=== PATIENT | female | born 1980 | race Caucasian/White ===

== ENCOUNTER → 2016-03-18 | Outpatient (CLI) | payer OTHER ==
--- NOTE | 2016-03-18 11:48 | KCIC ---
PROCEDURE Abdomen ultrasound HISTORY Diarrhea, abdominal pain COMPARISON None FINDINGS Multiple sonographic images of the abdomen are submitted. There is no abnormality of the visualized pancreas. Abdominal aorta is mostly obscured, visualized proximal segment within normal limits at 1.9 centimeters in caliber. There is diffuse coarsening of the echotexture of the liver, no obvious focal hepatic mass demonstrated on this exam. Right lobe of the liver measured 17 centimeters longitudinal. Common bile duct measured 0.3 centimeters. Gallbladder is present, internal echogenicity compatible with cholelithiasis. Gallbladder wall thickness is within normal limits. There is no pericholecystic fluid. Right kidney measured 10.5 x 5.5 x 5.9 centimeters, no hydronephrosis. Left kidney measured 11.3 x 4.8 x 6 x 5.3 centimeters, no hydronephrosis. Spleen measured 9.2 centimeters. No free fluid is demonstrated. IMPRESSION 1. There is cholelithiasis. 2. There is hepatic steatosis. Electronically signed by: Harish Hernández MD (Mar 18, 2016 11:47:07)
== END | disposition home or self-care (01) ==
LOC: KCIC US 08:42
PROVIDERS: ATTEND Physician Assistant Medical
DX: R10.9 Unspecified abdominal pain (principal); R19.7 Diarrhea, unspecified; K80.20 Calculus of gallbladder without cholecystitis without obstruction; K76.0 Fatty (change of) liver, not elsewhere classified
CPT/HCPCS: 76700

== ENCOUNTER → 2016-04-18 | Outpatient (CLI) | payer OTHER ==
--- NOTE | 2016-04-18 10:46 | KCIC ---
PROCEDURE PA and lateral chest radiographs 04/18/2016 HISTORY Productive cough for 5 days. FINDINGS PA and lateral digital radiographs of the chest were obtained. No previous studies are available for comparison. The cardiac and mediastinal silhouettes are within normal limits in size and configuration. No acute pulmonary infiltrate is seen. No pleural effusion or pneumothorax is noted. Very mild degenerative changes are seen involving the thoracic spine. Minimal S-shaped curvature of the thoracolumbar spine is noted. IMPRESSION No acute abnormality is seen. Electronically signed by: Reza Mccoy MD (Apr 18, 2016 10:45:36)
== END | disposition home or self-care (01) ==
LOC: KCIC 09:18
PROVIDERS: ATTEND Preventive Medicine Public Health & General Preventive Medicine
DX: R05 Cough (principal)
CPT/HCPCS: 71020

== ENCOUNTER → 2019-09-30 | Outpatient (CLI) | payer OTHER, BC ==
--- NOTE | 2019-09-30 15:39 | KCIC ---
AP Internal and external rotation views with Y-View of the left shoulder were performed. Indication: Shoulder pain after hearing a pop while lifting overhead Comparison: None. No fracture, glenohumeral or AC joint subluxation, or significant degenerative changes are seen. The subacromial space is maintained. Impression: 1. Unremarkable exam of the left shoulder. Electronically signed by: David العلي MD (09/30/2019 3:36 PM) [id number]
== END | disposition home or self-care (01) ==
LOC: KCIC 13:17
PROVIDERS: ATTEND Internal Medicine
DX: M19.012 Primary osteoarthritis, left shoulder (principal)
CPT/HCPCS: 73030

== ENCOUNTER → 2019-10-08 | Outpatient (CLI) | payer OTHER, BC ==
--- NOTE | 2019-10-08 13:11 | KCIC ---
EXAM: MRI left shoulder DATE: 10/08/2019 9:32 AM COMPARISON: None INDICATION: INJURY AND ACUTE PAIN OF LEFT SHOULDER TECHNIQUE: Multiplanar, multisequence MRI of the left shoulder was performed without contrast. FINDINGS: Examination is limited by motion artifact. Mild edema centered at the AC joint may correspond to low-grade AC sprain. Subacromial-subdeltoid bursal fluid likely bursitis. There is a high-grade partial-thickness bursal sided tear of the anteriormost fibers of the supraspinatus tendon involving about 75 percent tendon thickness, measuring approximately 1 cm in AP dimension. At the midcuff, there is a partial-thickness articular sided tear of the supraspinatus measuring approximately 5-6 mm in AP dimension. There is a background of moderate supraspinatus and infraspinatus tendinosis. Rotator cuff muscle signal and bulk is normal without fatty atrophy. Articular cartilage is grossly preserved. Mild deformity of the anterior-inferior labrum suspicious for tear. Extra articular long head biceps tendon is seen within the bicipital groove. Intra-articular long head biceps tendon is intact, normal in signal and morphology. IMPRESSION: 1. Mild edema centered at the AC joint may correspond to low-grade AC sprain. 2. High-grade partial-thickness bursal sided tear of the anteriormost fibers of the supraspinatus. At the level of the midcuff, there is likely a bursal sided tear. Background of supraspinatus and infraspinatus tendinosis. 3. Mild deformity of the anterior-inferior labrum is suspicious for labral tear and can be confirmed by MRI arthrogram if clinically indicated. Electronically signed by: Joshua Cortes MD (10/08/2019 1:07 PM) [id number]
== END ==
LOC: KCIC MRI 08:36
PROVIDERS: ATTEND Family Medicine
DX: S46.002D Unspecified injury of muscle(s) and tendon(s) of the rotator cuff of left shoulder, subsequent encounter (principal); M25.512 Pain in left shoulder; R29.898 Other symptoms and signs involving the musculoskeletal system; M75.112 Incomplete rotator cuff tear or rupture of left shoulder, not specified as traumatic; R60.0 Localized edema; X58.XXXD Exposure to other specified factors, subsequent encounter
CPT/HCPCS: 73221